=== PATIENT | female | born 1985 | race Caucasian/White ===

== ENCOUNTER → 2016-12-17 | Outpatient (CLI) | payer BC | END | disposition home or self-care (01) | LOC: C.LAB1850 12:44 | PROVIDERS: ATTEND Obstetrics & Gynecology | DX: O26.859 Spotting complicating pregnancy, unspecified trimester (principal); Z3A.00 Weeks of gestation of pregnancy not specified ==

== ENCOUNTER → 2017-01-02 | Outpatient (CLI) | payer BC ==
[2017-01-02 11:48] LABS: URINE APPEARANCE CLOUDY (CLEAR); URINE BILIRUBIN NEG (NEG); URINE COLOR YELLOW; URINE EPITHELIAL CELL AUTO >30 /lpf (0-5); URINE NITRITE NEG (NEG); URINE SPECIFIC GRAVITY 1.019 (1.000-1.030); UROBILINOGEN NEG (NEG)
[2017-01-02 11:52] LABS: MANUAL MICROSCOPIC REQUIRED? NO; REVIEW REQ? NO
== END | disposition home or self-care (01) ==
LOC: C.LABSPEC 11:04
PROVIDERS: ATTEND Obstetrics & Gynecology
DX: Z34.01 Encounter for supervision of normal first pregnancy, first trimester (principal)

== ENCOUNTER → 2017-01-04 | Outpatient (CLI) | payer BC | END | disposition home or self-care (01) | LOC: C.LAB1850 15:21 | PROVIDERS: ATTEND Obstetrics & Gynecology | DX: O20.0 Threatened abortion (principal) ==

== ENCOUNTER → 2017-01-08 | Outpatient (CLI) | payer BC ==
[2017-01-08 12:21] LABS: BASO % 0.1 %; BASO ABS # 0.01 K/uL (0-0.2); COMPLETE YES; HEMATOCRIT 37.6 % (37-47); IG% 0.3 %; LYMPH ABS # 1.78 K/uL (1.2-3.4); MEAN CELL VOLUME 94.5 fL (80-100); MEAN CORPUSCULAR HEMOGLOBIN 31.7 pg (25-34); MEAN CORPUSCULAR HGB CONC 33.5 g/dl (32-36); MEAN PLATELET VOLUME 10.8 fL (7.4-10.4); NEUT % 71.6 %; PLATELET COUNT 195 K/uL (130-400); RED BLOOD COUNT 3.98 M/uL (4.2-5.4); WHITE BLOOD COUNT 8.88 K/uL (4.8-10.8)
[2017-01-10 00:09] LABS: CHLAMYDIA TRACH RNA*** NOT DETECTED (NOT DETECTED); GC (NEIS GONORRHOEAE)RNA** NOT DETECTED (NOT DETECTED)
== END | disposition home or self-care (01) ==
LOC: C.LAB1850 09:54
PROVIDERS: ATTEND Obstetrics & Gynecology
DX: Z34.01 Encounter for supervision of normal first pregnancy, first trimester (principal)

== ENCOUNTER → 2017-03-05 | Outpatient (CLI) | payer BC | END | disposition home or self-care (01) | LOC: C.LAB1850 09:35 | PROVIDERS: ATTEND Obstetrics & Gynecology | DX: Z34.02 Encounter for supervision of normal first pregnancy, second trimester (principal) ==

== ENCOUNTER → 2017-06-21 | Outpatient (CLI) | payer BC | END | disposition home or self-care (01) | LOC: C.LAB1850 06:57 | PROVIDERS: ATTEND Obstetrics & Gynecology | DX: O28.1 Abnormal biochemical finding on antenatal screening of mother (principal) ==

== ENCOUNTER 2019-09-25 05:47 | Inpatient (IN) ==
[2019-09-25] MEDS ORDERED: LACTATED RINGER'S 1,000 ML IV SCH ×2 (06:00→09:03)
[2019-09-25] MEDS ORDERED: CEFAZOLIN 2,000 MG in SYRINGE 0 ML IV SCH (06:00)
[2019-09-25] MEDS ORDERED: CITRIC ACID/SODIUM CITRATE 15 ML UDC PO SCH (06:00)
[2019-09-25 06:21] LABS: Basophils # (auto) 0.01 K/uL (0-0.2); Basophils % (auto) 0.1 %; Hematocrit (blood only) 39.3 % (37-47); Hemoglobin 13.1 g/dL (12.0-16.0); Immature Granulocytes # (auto) 0.09 K/uL (0.00-0.02); Immature Granulocytes % (auto) 0.9 %; Lymphocytes # (auto) 2.36 K/uL (1.2-3.4); Lymphocytes % (auto) 23.8 %; Mean Platelet Volume 10.4 fL (7.4-10.4); Monocytes # (auto) 0.64 K/uL (0.11-0.59); Monocytes % (auto) 6.5 %; Neutrophils % (auto) 66.7 %; Platelet Count 201 K/uL (130-400); RDW Coefficient of Variation 14.1 % (11.5-14.5); RDW Standard Deviation 50.9 fL (36.4-46.3); Red Blood Count 3.97 M/uL (4.2-5.4)
[2019-09-25 06:39] LABS: Mean Corpuscular Hgb Conc 33.3 g/dL (32-36)
[2019-09-25] MEDS ORDERED: OXYTOCIN 10 UNITS/ML VIAL ONE (06:51)
[2019-09-25] MEDS ORDERED: MoRPHine SULFATE PF 1 MG/ML 10 ML AMP/VIAL ONE (06:51)
[2019-09-25] MEDS ORDERED: fentaNYL citrate 100 MCG/2 ML VIAL ONE (06:51)
[2019-09-25] MEDS ORDERED: ePHEDrine sulfate 50 MG/ML AMP IV PRN (07:03)
[2019-09-25] MEDS ORDERED: MoRPHine SULFATE PF 1 MG/ML 10 ML AMP/VIAL INT SPINAL ONE (07:03)
[2019-09-25] MEDS ORDERED: MoRPHine SULFATE 2 MG/ML CARP IV PRN (07:03)
[2019-09-25] MEDS ORDERED: NALOXONE HCL 0.08 MG in SYRINGE 1.8 ML IV PRN (07:03)
[2019-09-25] MEDS ORDERED: LACTATED RINGER'S 500 ML IV PRN (07:03)
[2019-09-25] MEDS ORDERED: ONDANSETRON INJ 2 MG/ML 2 ML VIAL IV PRN (07:03)
[2019-09-25] MEDS ORDERED: DiphenhydrAMINE HCL 50 MG/ML VIAL IV PRN (07:03)
[2019-09-25] MEDS ORDERED: NALOXONE HCL 1 MG in SODIUM CHLORIDE 0.9% 1000ML 1,000 ML IV PRN (07:03)
[2019-09-25] MEDS ORDERED: NALOXONE HCL 0.4 MG/1 ML VIAL/CARP IV PRN (07:03)
[2019-09-25] MEDS ORDERED: PROMETHAZINE HCL 12.5 MG in SODIUM CHLORIDE 0.9% 50 ML IV PRN (07:03)
--- NOTE | 2019-09-25 07:03 | Anesthesiology Consultation ---
Date of Service September 25, 2019 Assessment & Plan ASA ASA2 Proposed Anesthesia Anesthesia Type: Spinal Risk / Benefits Reviewed With: PT / POA / Parent / Guardian, Accepts Plan and Informed Consent Obtained History Surgery Operation Date: 09/25/19 07:30 Proposed Procedures p Section in LD - Serina Frye MD Height/Weight Height: 5 ft 6.5 in Weight: 74.843 kg Allergies Allergy/AdvReac Type Severity Reaction Status Date / Time Penicillins Allergy Intermediate HIVES Verified 09/24/19 15:11 house dust Allergy Congested Verified 09/24/19 15:11 mold Allergy Congested Verified 09/24/19 15:11 Medications Home Medications Medication Instructions Recorded Confirmed Last Taken [id number] 400 mcg-om3 35 mg-dha 25 1 tab PO HS tab 10/21/18 09/25/19 09/24/19 22:00 mg-epa 5 mg-fish oil chewable tablet ferrous gluconate 240 mg (27 mg 240 mg PO HS tab 10/21/18 09/25/19 09/24/19 22:00 iron) tablet cetirizine [Zyrtec] 10 mg PO HS 09/22/19 09/25/19 09/24/19 22:00 magnesium 200 mg PO QPM 09/22/19 09/25/19 09/24/19 22:00 Past Medical History Medical History Asthma Depression with anxiety Migraine Mitral valve prolapse was checked about 3 years ago -- MNCardio Palpitations ocas and has not had any since Exercise / Class Metabolic Activity II 4-5 Yardwork/Stairs/Walk up hill Past Family History Family History Grandmother Uterus cancer Depression Aunt Breast cancer Grandfather Colorectal cancer Myocardial infarction Grandfather (Maternal) Heart disease Sister Premature labor Depression Grandmother (Paternal) No problems noted. Mother Depression Myocardial infarction Uncle Myocardial infarction Denies family history of Ovarian cancer Prostate cancer Past Surgical History Surgical History No pertinent past surgical history Past Anesthesia History No Hx of Anesthesia Complications and No Family Hx of Anesthesia Complications History of PONV No Hx of PONV and No Hx of Motion Sickness Social History Smoking Status: Never smoker Do You Dip or Chew Tobacco: No Hx Alcohol Use: No Hx Substance Use: No substance use type: does not use Review of Systems denies fever/cough/ colds/ chest pain/ SOB/ MARIAM Constitutional: no fever and no chills Respiratory: no cough and no dyspnea denies MARIAM Cardiovascular: no chest pain and no dyspnea on exertion Physical Exam Vital Signs Last Vital Signs Temp 36.7 C 09/25/19 06:03 Resp 18 09/25/19 06:03 BP 119/69 09/25/19 06:03 ENMT Mouth: no TMJ abnormality and no dentition abnormality Thyromental Distance: > or= 3.5 Finger Breadths Mallampati Class: II Neck neck extension not limited Respiratory normal respiratory effort; no respiratory distress Auscultation: lungs clear to auscultation bilaterally Cardiovascular Rate/Rhythm: regular rate and regular rhythm Neurologic moves all extremities Psychiatric Orientation: alert and oriented x 3 Testing Laboratory Results 09/25/19 06:02
[2019-09-25] MEDS ORDERED: DC INTRASPINAL MORPHINE SCH (07:15)
[2019-09-25] MEDS ORDERED: NO NARCOTICS OR SEDATIVES SCH (07:15)
[2019-09-25] MEDS ORDERED: SODIUM CHLORIDE 0.9% 1000ML 1,000 ML IV SCH (07:15)
[2019-09-25 07:17] LABS: Appearance Urine Clear (Clear); Bacteria Urine Automated Negative (Negative); Bilirubin Urine Negative (Negative); Blood Urine Negative (Negative); Color Urine Yellow; Epithelial Cell Urine Auto >30 /lpf (0-5); Glucose Urine UA Negative (Negative); Ketones Urine 1+ (Negative); Leukocyte Esterase Urine 1+ (Negative); Nitrite Urine Negative (Negative); Protein Urine Negative (Negative); RBC Urine Automated 0-4 /hpf (0-4); Specific Gravity Urine 1.014 (1.000-1.030); Urobilinogen Urine Negative (Negative); pH Urine 6.5 (4.5-7.5)
--- NOTE | 2019-09-25 07:31 | History & Physical Bridge Note ---
Date of Service September 25, 2019 History & Physical Bridge Note I have examined the patient, reviewed the History & Physical and in the interval since the performance of the History & Physical I have noted the following changes of clinical significance: no changes noted
--- NOTE | 2019-09-25 08:40 | Operative Report ---
PG Post Operative Report Pre & Post Diagnosis Operation Date: 09/25/19 07:30 Pre-Op Diagnosis: 1. Spine-down Transverse with head to patient LEFT Presentation 2. Bicornuate Uterus Post-Op Diagnosis: Same I identified the patient and participated in the time-out.: Yes Procedure Operation Date: 09/25/19 07:30 Actual Procedures p Section in LD; Primary lower uterine transverse for the of a live girl infant at 0801.(Bilateral) - Serina Frye MD Surgeon Serina Frye MD Bulk Plant Supervisor Mary Jane Estimated Blood Loss 750 Findings Consistent with Post-Op Diagnosis Specimens Cord blood, placenta Anesthesia Type Spinal Complications none Disposition Accompanied Patient To Recovery: Yes Disposition: L&D Description of Procedure The patient was brought to the operating room and placed on the table in the supine position with a leftward tilt, then prepped and draped in standard sterile fashion. A hard time out was taken prior to proceeding. A pfannensteil incision was created sharply and carried down to the fascia using bovie electrocautery. The fascia was nicked and then extended using boykin scissors. The edges of the fascia were grasped with Anne clamps and elevated, then sharply and bluntly dissected off the underlying rectus. The midline of the rectus was identified and bluntly . The peritoneum was bluntly entered, and this entry was extended using pressure from the surgeon's hands. The bladder retractor was placed and the lower uterine segment was examined and found to be well developed. A bladder flap was created and the retractor was replaced behind this flap to protect the bladder. A transverse lower uterine incision was then created, with final entry to the uterine cavity made in a blunt manner with the surgeon's finger. Clear amniotic fluid was encountered. The breech was elevated to the incision sacrum-anterior and delivered using mild fundal pressure. The body, arms and head were delivered maintaining physiologic positions. The cord was doubly clamped and cut, then the vigorous infant was taken to the warmer for slat basket maker helper machine care. The placenta was manually extracted, then the uterus was gently exteriorized from the maternal abdomen. The cavity was cleared of clot and debris using a dry lap sponge. The angles of the incision were identified with allis clamps, and the hysterotomy was then repaired in running locked fashion using 0-vicryl suture, followed by a second imbricating layer. The tubes and ovaries were examined and found to be normal bilaterally. The posterior gutter was irrigated and cleared of clot and debris. The uterus was then gently re-internalized to the abdomen. Cody was applied over the hysterotomy and bladder flap edge and pressure applied for 60 seconds. Lateral gutters were cleared of clot and debris using a damp lap sponge, and a final exam of the hysterotomy revealed good hemostasis. The rectus muscles were allowed to reapproximate naturally. The angle of the fascia was grasped with a Anne clamp and the fascia was then repaired in running non-locked fashion with 1-vicryl suture. At the completion of repair, the fascia was examined and found to be free of any defect. The subcutaneous tissue was copiously irrigated and then reapproximated using 3-0 chromic. The skin was then closed using 4-0 monocryl in a running subcuticular fashion and a dermabond dressing was applied. The bahena was noted to be draining clear yellow urine as the patient was transferred back to her recovery room. I attest to the content of the Intraoperative Record and any orders documented therein. Any exceptions are noted below.
[2019-09-25] MEDS ORDERED: SENNA 8.6 MG TAB PO PRN (09:03)
[2019-09-25] MEDS ORDERED: BENZOCAINE 20% AER SPR 82.5 GM CAN EXT PRN (09:03)
[2019-09-25] MEDS ORDERED: DIPHTHERIA/TETANUS/PERTUSSIS 0.5 ML SYR/VIAL IM ONE (09:03)
[2019-09-25] MEDS ORDERED: OXYTOCIN 30 UNITS in LACTATED RINGER'S 1,000 ML IV SCH (09:03)
[2019-09-25] MEDS ORDERED: SUPERCREAM 0.870% 15 GM JAR EXT PRN (09:03)
[2019-09-25] MEDS ORDERED: MAGNESIUM HYDROXIDE SUSP 30 ML UDC PO PRN (09:03)
[2019-09-25] MEDS ORDERED: HYDROCORTISONE ACETATE 25 MG SUPP PR PRN (09:03)
[2019-09-25] MEDS: KETOROLAC 30 MG/ML VIAL IV PRN ×3 (09:11→23:41)
--- NOTE | 2019-09-25 10:35 | Anesthesiology Progress Note ---
Date of Service September 25, 2019 Anesthesia Post Procedure Vital Signs Vital Signs: Temp Pulse Resp BP Pulse Ox 09/25/19 10:33 79 98 09/25/19 10:31 79 110/59 L 09/25/19 10:28 83 98 09/25/19 10:23 87 97 09/25/19 10:21 85 121/61 09/25/19 10:18 86 98 09/25/19 10:13 80 97 09/25/19 10:11 89 103/56 L 09/25/19 10:08 93 H 98 09/25/19 10:03 84 99 09/25/19 10:02 85 104/59 L 09/25/19 09:58 90 98 09/25/19 09:53 83 98 09/25/19 09:51 80 127/58 L 09/25/19 09:48 77 99 09/25/19 09:43 83 98 09/25/19 09:41 80 123/60 09/25/19 09:40 18 09/25/19 09:38 77 97 09/25/19 09:33 80 99 09/25/19 09:31 81 115/57 L 09/25/19 09:30 18 09/25/19 09:28 83 98 09/25/19 09:23 77 99 09/25/19 09:22 78 122/59 L 09/25/19 09:20 18 09/25/19 09:18 73 99 09/25/19 09:13 77 98 09/25/19 09:11 193 H 121/69 09/25/19 09:10 18 09/25/19 09:08 72 100 09/25/19 09:03 78 99 09/25/19 09:01 83 119/57 L 09/25/19 09:00 18 09/25/19 08:58 90 99 09/25/19 08:53 87 100 09/25/19 08:51 63 111/56 L 09/25/19 08:50 18 09/25/19 08:48 70 100 09/25/19 08:43 69 100 09/25/19 08:41 69 115/55 L 09/25/19 08:40 36.4 C L 18 09/25/19 08:38 74 100 09/25/19 06:03 36.7 C 18 119/69 Pain Intensity Lower Abdomen: Pain Intensity: 3 Transfer of Care Handoff Completed per policy Notes Mental Status: alert / awake / arousable and participated in evaluation Patient Amnestic to Procedure: Yes Nausea / Vomiting: adequately controlled Pain: adequately controlled Airway Patency, RR, SpO2: stable & adequate BP & HR: stable & adequate Hydration State: stable & adequate Anesthetic Complications: no major complications apparent and Pt Satisfied with anesthetic care
[2019-09-25] MEDS ORDERED: SERTRALINE HCL 50 MG TABLET PO SCH (10:45)
[2019-09-25] MEDS ORDERED: ACETAMINOPHEN 1,000 MG/100 ML VIAL IV STA (11:32)
[2019-09-25] MEDS: SIMETHICONE 80 MG CHEW PO SCH ×2 (12:45→20:45)
[2019-09-25] MEDS: DOCUSATE SODIUM 100 MG CAP PO SCH (20:44)
[2019-09-25] MEDS: SERTRALINE HCL 50 MG TABLET PO SCH (20:44)
[2019-09-25] MEDS: CETIRIZINE HCL 10 MG TABLET PO SCH (22:09)
[2019-09-26] MEDS ORDERED: KETOROLAC 30 MG/ML VIAL IV PRN (01:03)
[2019-09-26] MEDS ORDERED: PROMETHAZINE HCL 25 MG in SODIUM CHLORIDE 0.9% 50 ML IV PRN (01:03)
[2019-09-26] MEDS ORDERED: ONDANSETRON INJ 2 MG/ML 2 ML VIAL IV PRN (01:03)
[2019-09-26] MEDS ORDERED: DiphenhydrAMINE HCL 50 MG/ML VIAL IV PRN (01:03)
[2019-09-26] MEDS ORDERED: MEPERIDINE HCL 50 MG/ML CARP IV PRN (01:03)
--- NOTE | 2019-09-26 05:09 | Obstetrical Progress Note ---
Date of Service <Simón Sin MD - Last Filed: 09/26/19 06:16> September 26, 2019 Assessment & Plan <Simón Sin MD - Last Filed: 09/26/19 06:16> (1) S/P : Renetta is a 34F who underwent scheduled c/s at 39 WGA on 09/24 for breech positioning at term without complication. - POD-1 - Feels well today. Eating well, voiding well, ambulating well. - Pain well controlled with ibuprofen 600mg Q4H PRN. - Anticipate removal of bahena - Routine post-op care -- OOB, ambulation, progressing diet as tolerated Subjective <Simón Sin MD - Last Filed: 09/26/19 06:16> Renetta is a 34y/o female who is POD #1 following delivery at 39 weeks. She reports feeling well overall this morning. Some abdominal cramping in RLQ this AM with pain well managed on analgesics. Voiding clear urine. Tolerating meals overnight and able to ambulate some. Passing gas without bowel movement yet. Has some persistent lochia with some improvement this morning. Currently breast feeding without concern. Review of Systems Denies fever, chills, sweats Denies shortness of breath, difficulty breathing, chest pain, palpitations, chest pressure. Denies breast pain. Denies dysuria. Denies headache or changes in vision. Physical Exam <Simón Sin MD - Last Filed: 09/26/19 06:16> General: Alert, oriented. No acute distress. Cardiac: Regular rate and rhythm, flow murmur appreciated at LUSB/LLSB - otherwise, no other murmurs/rubs/gallops. Respiratory: Clear to auscultation bilaterally a/p, no wheezes/rales/rhonchi. No increased work of breathing. Symmetrical chest rise. No respiratory distress. Abdomen: Soft, nontender, nondistended. Bowel sounds present. Uterus: Uterine fundus firm, palpable at level of umbilicus. Surgical scar clean and healing well. Lower Extremities: No lower extremity edema or swelling. No deep calf pain. Wallace's negative bilaterally. Results & Data <Simón Sin MD - Last Filed: 09/26/19 06:16> Vital Signs (Past 12 Hours) Vital Signs Temp Pulse Resp BP Pulse Ox 09/26/19 02:00 18 99 09/26/19 01:00 18 99 09/26/19 00:00 37.0 C 76 18 108/65 99 09/25/19 22:40 16 97 09/25/19 21:40 18 99 09/25/19 20:40 36.7 C 80 16 119/67 99 09/25/19 19:40 16 99 09/25/19 18:15 18 99 09/25/19 17:15 97 H <Serina Frye MD - Last Filed: 09/26/19 07:49> Co-Signing Physician Notes I have reviewed the resident's note and examined the patient myself, and agree with the note above. Resident Activity Tracking <Simón Sin MD - Last Filed: 09/26/19 06:16> Resident Involvement: Resident Care Provided Care Provided: Adult Hospital Medicine and OB Delivery
[2019-09-26] MEDS: OXYCODONE/ACETAMINOPHEN 5mg/325mg TAB PO PRN ×4 (06:23→20:59)
[2019-09-26] MEDS: IBUPROFEN 600 MG TAB PO PRN ×4 (06:24→20:59)
[2019-09-26 08:04] LABS: Basophils # (auto) 0.01 K/uL (0-0.2); Basophils % (auto) 0.1 %; Eosinophils # (auto) 0.08 K/uL (0-0.5); Eosinophils % (auto) 0.9 %; Hematocrit (blood only) 28.6 % (37-47); Hemoglobin 9.5 g/dL (12.0-16.0); Immature Granulocytes # (auto) 0.06 K/uL (0.00-0.02); Immature Granulocytes % (auto) 0.7 %; Lymphocytes % (auto) 14.7 %; Mean Corpuscular Hemoglobin 32.6 pg (25-34); Mean Corpuscular Hgb Conc 33.2 g/dL (32-36); Mean Corpuscular Volume 98.3 fL (80-100); Mean Platelet Volume 10.4 fL (7.4-10.4); Monocytes # (auto) 0.55 K/uL (0.11-0.59); Monocytes % (auto) 6.2 %; Neutrophils # (auto) 6.87 K/uL (1.4-6.5); Neutrophils % (auto) 77.4 %; Platelet Count 174 K/uL (130-400); RDW Coefficient of Variation 14.4 % (11.5-14.5); RDW Standard Deviation 51.6 fL (36.4-46.3); Red Blood Count 2.91 M/uL (4.2-5.4); White Blood Count 8.87 K/uL (4.8-10.8)
[2019-09-26] MEDS: DOCUSATE SODIUM 100 MG CAP PO SCH ×2 (08:43→20:59)
[2019-09-26] MEDS: SIMETHICONE 80 MG CHEW PO SCH ×4 (08:43→20:58)
[2019-09-26] MEDS: PRENATAL VITAMIN 1 TAB PO SCH (08:43)
[2019-09-26] MEDS: FERROUS SULFATE 325 MG TAB PO SCH (08:43)
[2019-09-26] MEDS: CETIRIZINE HCL 10 MG TABLET PO SCH (20:59)
[2019-09-26] MEDS: SERTRALINE HCL 50 MG TABLET PO SCH (20:59)
[2019-09-27] MEDS: OXYCODONE/ACETAMINOPHEN 5mg/325mg TAB PO PRN ×3 (06:31→16:55)
[2019-09-27 06:39] LABS: Hematocrit (blood only) 26.6 % (37-47)
[2019-09-27] MEDS: PRENATAL VITAMIN 1 TAB PO SCH (08:40)
[2019-09-27] MEDS: FERROUS SULFATE 325 MG TAB PO SCH (08:40)
[2019-09-27] MEDS: SIMETHICONE 80 MG CHEW PO SCH ×3 (08:40→16:54)
[2019-09-27] MEDS: DOCUSATE SODIUM 100 MG CAP PO SCH (08:41)
--- NOTE | 2019-09-27 10:17 | Obstetrical Progress Note ---
Date of Service September 27, 2019 Assessment & Plan (1) S/P : Doing well. Day 2 s/p . Routine post care. Stable for discharge if preferred Subjective Ambulation: ambulating normally Voiding: no voiding problems Passing Gas:: Yes Diet Tolerance:: regular diet Lochia:: Moderate Feeding Type:: breast feeding Physical Exam Constitutional WD/WN, vitals as above Respiratory normal respiratory effort; no respiratory distress and no labored breathing Gastrointestinal (Abdomen) Inspection/Auscultation: abdomen normal to inspection; abdomen not distended Percussion/Palpation: abdomen soft; abdomen nontender, no guarding and abdomen not rigid Incision intact Genitourinary OB Exam Abdomen: + fundal height Fundus: + firm and + relation to umbilicus (Below); not tender and not boggy Results & Data ([facility] [place]) Vital Signs (Past 12 Hours) Vital Signs Temp Pulse Resp BP Pulse Ox 09/27/19 08:45 37.2 C 80 18 115/67 96 09/26/19 23:05 36.6 C 80 18 100/59 L
[2019-09-27] MEDS: IBUPROFEN 600 MG TAB PO PRN ×2 (12:23→16:54)
[2019-09-27] MEDS ORDERED: Nursing to Pharmacy Communication SCH (19:30)
[2019-09-27] MEDS ORDERED: PERCOCET 5/325MG HOMEPACK PO ONE (19:45)
[2019-09-27] MEDS: SERTRALINE HCL 50 MG TABLET PO SCH (19:56)
--- NOTE | 2019-09-30 09:26 | Discharge Summary ---
Date of Service September 30, 2019 Discharge Data Procedures Performed Operation Date: 09/25/19 07:30 Actual Procedures p Section in LD; Primary lower uterine transverse for the of a live girl infant at 0801.(Bilateral) - Serina Frye MD Hospital Course (1) S/P : Patient underwent planned for malpresentation, which was un complicated. She had a typical postoperative recovery and was discharged home in good condition on POD#2 at patient request, with percocet prn pain, and follow up planned for 6 weeks in the office. Coding Level of Care Code None Diagnoses S/P Z98.891
== END 2019-09-27 20:30 | disposition home or self-care (01) | DRG 788 ==
LOC: 4S1 05:47 → EDSTATUS 08:50 → 4S2 11:54